=== PATIENT | female | born 1960 | race Caucasian/White ===

== ENCOUNTER 2016-07-02 07:11 | Day surgery (SDC) | payer OTHER ==
[2016-07-02] MEDS ORDERED: PROPOFOL 40 ML IV ONE (09:02)
[2016-07-02] MEDS ORDERED: PROPOFOL 20 ML IV ONE (09:37)
--- NOTE | 2016-07-09 14:20 | SURGPATH ---
[facility] [address] [place] [id number] Patient Name: ISABEL HUERTAS MR#: [id number] : 1960 Gender: F Specimen #: [id number] Collected: 07/02/2016 Received: 07/03/2016 Reported: 07/06/2016 Submitting Phys: SERGIO BEAR [facility] Clinical History / Pre-Operative Diagnosis: SCREENING COLONOSCOPY Specimen Source / Surgical Procedure Performed: #1-TRANSVERSE COLON POLYP AT 50 CM; #2-SIGMOID COLON POLYP AT 20 CM Interpretation: 1. COLON, TRANSVERSE 50 CM, BIOPSY: - TUBULAR ADENOMA. - NO EVIDENCE OF MALIGNANCY. 2. COLON, SIGMOID 20 CM, BIOPSY: - HYPERPLASTIC POLYP. - NO EVIDENCE OF ADENOMATOUS CHANGE OR MALIGNANCY. Electronically Signed Out Mike Hwang M.D., Ph.D. Gross Description: #1 The specimen is received in a formalin filled container labeled with the patient's name and "transverse colon polyp at 50 cm". A single buckner biopsy is 0.5 cm. Totally embedded in cassette #1. #2 The specimen is received in a formalin filled container labeled with the patient's name and "sigmoid colon polyp at 20 cm". A single buckner biopsy is 0.3 cm. Totally embedded in cassette #2. Shahana Castillo Microscopic Description: 1. Examination of multiple levels from the transverse colon biopsy at 50 cm shows a single fragment of colonic mucosa with adenomatous changes within glands and tubules. There is no evidence of malignancy. 2. Examination of multiple levels from the sigmoid colon biopsy at 20 cm shows a single fragment of colonic mucosa with dilated and hyperplastic glands. There is no evidence of adenomatous change or malignancy. 1: [id number] 2: 53741 D12.3 K63.5
== END 2016-07-02 10:20 | disposition home or self-care (01) ==
LOC: SDC 07:11
PROVIDERS: ATTEND Family Medicine
DX: Z12.11 Encounter for screening for malignant neoplasm of colon (principal); K63.5 Polyp of colon; F17.200 Nicotine dependence, unspecified, uncomplicated